=== PATIENT | female | born 2000 | race Hispanic/Latino ===

== ENCOUNTER → 2024-03-20 13:22 | Outpatient (REF) | payer OTHER, SELFPAY | LOC: PNTC 13:22 | PROVIDERS: ATTENDING PHYSICIAN Obstetrics & Gynecology | DX: Z34.02 Encounter for supervision of normal first pregnancy, second trimester (principal) | CPT/HCPCS: 36415; 86850; 86900; 86901; 96372; J2790 ==

== ENCOUNTER 2024-04-02 00:33 | Observation (INO) | payer OTHER, SELFPAY ==
[2024-04-02 00:54] VITALS: BP 115/82; BMI 25.4
== END 2024-04-02 01:54 | disposition home or self-care (01) ==
LOC: LDRP 00:33
PROVIDERS: ADMITTING PHYSICIAN Obstetrics & Gynecology; FAMILY PHYSICIAN Student in an Organized Health Care Education/Training Program
DX: O46.93 Antepartum hemorrhage, unspecified, third trimester (principal); Z3A.31 31 weeks gestation of pregnancy
CPT/HCPCS: G0378

== ENCOUNTER → 2024-04-12 13:28 | Outpatient (REF) | payer OTHER, SELFPAY | LOC: PNTC 13:28 | PROVIDERS: ATTENDING PHYSICIAN Student in an Organized Health Care Education/Training Program | DX: Z34.00 Encounter for supervision of normal first pregnancy, unspecified trimester (principal) | CPT/HCPCS: 76816 ==

== ENCOUNTER 2024-05-30 12:05 | Inpatient (IN) | payer OTHER, SELFPAY ==
[2024-05-30 12:17] VITALS: BP 114/76; BMI 27.3
[2024-05-30] MEDS: LR 1000 IV ×2 (13:15→17:45)
[2024-05-30 13:23] LABS: % Basophils 0.3 % (0-2); % Eosinophils 0.6 % (0-6); % Immature Granulocytes 2.3 % (0-0.5); % Lymphocytes 14.2 % (20.5-51.1); % Monocytes 6.8 % (1.7-9.3); % Neutrophils 75.8 % (42.2-75.2); Absolute Eosinophils 0.1 10^3/uL (0-0.7); Absolute Immature Granulocytes 0.2 10^3/uL (0-0.05); Absolute Lymphocytes 1.1 10^3/uL (1.2-3.4); Absolute Monocytes 0.5 10^3/uL (0.1-0.6); Absolute Neutrophils 5.9 10^3/uL (1.4-6.5); Hematocrit 30.4 % (37.0-47.0); Hemoglobin 9.8 g/dL (12.0-16.0); Mean Corp Hgb Conc. 32.2 g/dL (33.0-37.0); Mean Corpuscular Hgb 25.1 pg (27.0-31.0); Mean Corpuscular Volume 77.7 fL (81.0-99.0); Mean Platelet Volume 9.2 fL (7.4-10.4); Nucleated Red Blood Cells % 0.3 %; Platelet Count 184 10^3/uL (130-400); Red Blood Cell Count 3.91 10^6/uL (4.20-5.40); Red Cell Dist. Width 19.6 % (11.5-14.5); White Blood Cell Count 7.7 10^3/uL (4.8-10.8)
[2024-05-30] MEDS: PENICILLIN 110 UNITS IV (13:28)
[2024-05-30] MEDS: SUBLIMAZE 100 MCG EPIDURAL (14:27)
[2024-05-30] MEDS: FENTANYL/BUPIVACAINE 100 EPIDURAL (14:29)
[2024-05-30] MEDS: PENICILLIN 55 UNITS IV (17:22)
[2024-05-30] MEDS: PITOCIN 30 UNITS/NSS 500 ML IV (19:09)
[2024-05-30] MEDS: TYLENOL 650 MG PO (21:30)
[2024-05-31] MEDS: MOTRIN 600 MG PO (00:02)
[2024-05-31 04:03] LABS: Hematocrit 27.8 % (37.0-47.0)
[2024-05-31] MEDS: TYLENOL 650 MG PO (04:15)
[2024-05-31] MEDS: PRENATAL PLUS 1 TABLET PO (08:25)
[2024-05-31] MEDS: FEOSOL 325 MG PO (08:25)
[2024-05-31 11:59] LABS: Syphilis/T. pallidum Ab Reflex Negative (Negative)
[2024-05-31] MEDS: RHOGAM 300 MCG IM (13:36)
[2024-06-01] MEDS: TYLENOL 650 MG PO (04:57)
[2024-06-01] MEDS: FEOSOL 325 MG PO (08:45)
[2024-06-01] MEDS: PRENATAL PLUS 1 TABLET PO (08:45)
[2024-06-01] MEDS: SENOKOT-S 1 TABLET PO (08:45)
== END 2024-06-01 13:39 | disposition home or self-care (01) | DRG 807 ==
LOC: LDRP 12:05
PROVIDERS: ADMITTING PHYSICIAN Student in an Organized Health Care Education/Training Program; FAMILY PHYSICIAN Obstetrics & Gynecology
PROC: 0KQM0ZZ Repair Perineum Muscle, Open Approach (ICD-10-PCS; 2024-05-30)
PROC: 4A1HXCZ Monitoring of Products of Conception, Cardiac Rate, External Approach (ICD-10-PCS; 2024-05-30)
PROC: 10907ZC Drainage of Amniotic Fluid, Therapeutic from Products of Conception, Via Natural or Artificial Opening (ICD-10-PCS; 2024-05-30)
PROC: 0UQMXZZ Repair Vulva, External Approach (ICD-10-PCS; 2024-05-30)
PROC: 0HQ9XZZ Repair Perineum Skin, External Approach (ICD-10-PCS; 2024-05-30)
PROC: 10E0XZZ Delivery of Products of Conception, External Approach (ICD-10-PCS; 2024-05-30)
PROC: 3E0234Z Introduction of Serum, Toxoid and Vaccine into Muscle, Percutaneous Approach (ICD-10-PCS; 2024-05-31)
DX: O48.0 Post-term pregnancy (principal); Z37.0 Single live birth; O99.824 Streptococcus B carrier state complicating childbirth; Z3A.40 40 weeks gestation of pregnancy; O70.0 First degree perineal laceration during delivery; O99.02 Anemia complicating childbirth; O99.62 Diseases of the digestive system complicating childbirth; O26.893 Other specified pregnancy related conditions, third trimester; K90.0 Celiac disease; O76 Abnormality in fetal heart rate and rhythm complicating labor and delivery; Z67.41 Type O blood, Rh negative
CPT/HCPCS: 85014; 85018; 85025; 85461; 86780; 86850; 86870; 86900; 86901; J2790